=== PATIENT | male | born 1955 | race Caucasian/White ===

== ENCOUNTER 2021-02-11 18:26 | Inpatient (IN) | payer OTHER ==
[~2021-02-11] VITALS: Ht 182.9 cm; Wt 68.5 kg
--- NOTE | ~2021-02-11 | EMS ---
[facility] [address] [place] [address] EMS Patient Care Report Name: BORIS MCCLELLAN JR Room #: 441-P ADM IN M.R.#: [id number] Admission: 02/12/21 Attend Phys: Nahomy Lee MD Discharge: Date of : 55 Report #: [id number] THIS REPORT FOR: //name// Report Transmitted: 02/15/2021 14:54 EMS Care Summary [place], [place]/[facility] Incident [id number] @ 02/11/2021 17:56 Incident Location [address] [place] [address] Patient BORIS MCCLELLAN Male, 65 Years 1955 Patient Address [address] [place] [address] Patient History Congestive Heart Failure (CHF),Chronic Obstructive Pulmonary Disease (COPD),Hypertension (HTN),Stroke/CVA,Hyperlipidemia,Cardiac - Stent,Hyperglycemia, Patient Allergies No known allergies, Patient Medications Albuterol, Nitroglycerin, Acetaminophen, Ativan, Atorvastatin, Famotidine, Chief Complaint constipation Disposition Transported No Lights/[place] Dispatch Reason Abdominal Pain/Problems Transported To [facility] Narrative M42 dispatched for a 61 year old male conscious and breathing having abdominal pain. Patient is located inside the facility laying down in bed. Patient [facility] [address] [place] [address] EMS Patient Care Report Name: BORIS MCCLELLAN JR Room #: 441-P [facility] IN M.R.#: [id number] Admission: 02/12/21 Attend Phys: Nahomy Lee MD Discharge: Date of : 55 Report #: [id number] acknowledges EMS presence is GCS 15, AAOx4. Patient is bedbound and has left sided weakness from Prior stroke. Patient advises of abdominal pain due to not having a bowel movement in the past week. Patient would like to go to [facility] for further evaluation. Patient is moved to the stretcher and secured using seatbelts and rails. Transport is initiated. Assessment conducted is unremarkable. Arrival at the receiving facility patient condition is stable and unchanged. Patient is offloaded and taken to ED room 10. RN is given report and transfer of care is completed. Signatures are obtained and M42 returns to service. Initial Vitals @18:11P: 79,R: 15,BP: 130/87,Pain: 2/10,GCS: 15,CO: 0,SpO2: 95,Revised Trauma: 12, @18:10P: 80,R: 16,BP: 121/84,Pain: 4/10,GCS: 15,SpO2: 98,Revised Trauma: 12, Assessments @18:10MENTAL:No Abnormalities,SKIN:No Abnormalities,HEENT:Head/Face: No Abnormalities,Eyes: No Abnormalities,Neck/Airway: No Abnormalities,LUNG SOUNDS:General: No Abnormalities,ABDOMEN:General: No Abnormalities,PELVIS//GI:No Abnormalities,EXTREMITIES:Left Arm: No Abnormalities,Right Arm: No Abnormalities,Left Leg: No Abnormalities,Right Leg: No Abnormalities,PULSE:NEURO:No Abnormalities, Impression Abdominal Pain Procedures @18:10 ALS Assessment Response: UnchangedSucceeded Timeline 17:42,Call Received 17:42,Dispatch Notified 17:56,Dispatched 17:56,En Route 18:04,On Scene 18:09,At Patient 18:10,ALS Assessment,Response: UnchangedSucceeded, 18:10,BP: 121/84 M,PULSE: 80,RR: 16 R,SPO2: 98 Ox,ETCO2: ,BG: ,PAIN: 4,GCS: 15, 18:11,BP: 130/87 M,PULSE: 79,RR: 15 R,SPO2: 95 Ox,ETCO2: ,BG: ,PAIN: 2,GCS: 15, 18:15,Depart Scene 18:22,At Destination 18:30,Call Closed [facility] [address] [place] [address] EMS Patient Care Report Name: VYBORIS Room #: 441-P ADM IN M.R.#: [id number] Admission: 02/12/21 Attend Phys: Nahomy Lee MD Discharge: Date of : 55 Report #: [id number] Disclaimer v1.1 Copyright 2020 [employer] This EMS Care Summary contains data elements from the applicable legal record (which may be displayed differently). It is designed to provide pertinent information for the following purposes: continuity of care, clinical quality, and state data reporting. The complete legal record is available to ED staff and administrators of the receiving hospital in [facility]'s Patient Tracker. All data is provided "as is."
[2021-02-11 18:27] VITALS: BP 122/75
[2021-02-11 19:46] LABS: ABSOLUTE NEUTROPHILS 3.5 thou/uL (1.4-8.2); BASOPHILS 0.9 % (0.0-2.0); EOSINOPHILS 8.3 % (0.0-3.0); HEMATOCRIT 44.3 % (42.0-52.0); HEMOGLOBIN 14.6 gm/dL (14.0-18.0); LYMPHOCYTES 23.9 % (24.0-44.0); MCH 28.7 pg (26.0-34.0); MCHC 32.9 g/dL (28.0-37.0); MCV 87.3 fL (80.0-100.0); MONOCYTES 10.7 % (1.0-8.0); PLATELET COUNT 200 thou/uL (150-400); POLYS 56.2 % (36.0-66.0); RBC 5.07 mil/uL (4.50-6.00); RDW 15.2 % (10.5-14.5); WBC 6.3 thou/uL (4.0-11.0)
[2021-02-11 19:56] LABS: CALCIUM 9.1 mg/dL (8.5-10.1); CREATININE 0.9 mg/dL (0.7-1.3); POTASSIUM 3.5 mmol/L (3.5-5.1)
[2021-02-11 20:02] LABS: ALBUMIN 2.9 g/dL (3.4-5.0); DIRECT BILIRUBIN 0.4 mg/dL (<0.1-0.2); TOTAL BILIRUBIN 2.1 mg/dL (0.2-1.0); TOTAL PROTEIN 7.2 g/dL (6.4-8.2)
[2021-02-11] MEDS ORDERED: ASA81BEC PO (21:13)
[2021-02-11] MEDS ORDERED: LIPITOR80 MG PO (21:14)
[2021-02-11] MEDS ORDERED: FAMOTIDINE 20 M20 MG PO (21:15)
[2021-02-11] MEDS ORDERED: MILK OF MA2400 MG/11 PO (21:15)
[2021-02-11] MEDS ORDERED: SEROQUEL 100 M100 M1 PO (21:16)
[2021-02-11] MEDS ORDERED: NITROGLYCERIN0.3 M1 PO (21:21)
[2021-02-12 01:56] LABS: HEMATOCRIT 41.6 % (42.0-52.0); MCH 29.2 pg (26.0-34.0); MCHC 33.6 g/dL (28.0-37.0); RBC 4.79 mil/uL (4.50-6.00); RDW 15.4 % (10.5-14.5); WBC 5.5 thou/uL (4.0-11.0)
[2021-02-12 02:10] LABS: CALCIUM 8.7 mg/dL (8.5-10.1); POTASSIUM 3.1 mmol/L (3.5-5.1)
[2021-02-12] MEDS ORDERED: ACETAMINOPHEN325 MG PO (03:33)
[2021-02-12] MEDS ORDERED: NYSTATIN15 G2 TOP (03:34)
[2021-02-12] MEDS ORDERED: ULTRAM 50MG TAB50 MG PO (03:35)
[2021-02-12] MEDS ORDERED: TOPROL XL25 MG PO (03:35)
[2021-02-12] MEDS ORDERED: DULCOLAX10 MG RECTAL (03:36)
[2021-02-12] MEDS ORDERED: PROAIR HFA8.5 GM INH (03:36)
[2021-02-12 07:30] VITALS: BP 124/64
[2021-02-12 07:39] VITALS: BP 141/77
[2021-02-12 18:21] VITALS: BP 147/75
--- NOTE | 2021-02-12 18:45 | NUR ---
Pt arrived to room 441 from Ed via cart
[2021-02-12 19:35] VITALS: BP 161/88
[2021-02-13 05:56] LABS: HEMATOCRIT 41.4 % (42.0-52.0); HEMOGLOBIN 13.7 gm/dL (14.0-18.0); MCH 28.9 pg (26.0-34.0); MCHC 33.1 g/dL (28.0-37.0); MCV 87.5 fL (80.0-100.0); RBC 4.73 mil/uL (4.50-6.00)
--- NOTE | 2021-02-13 05:59 | NUR ---
RECEIVED CARE OF THIS PATIENT AT 1900. PATIENT ALERT AND ORIENTED X4. REMAINS NPO BUT KEEPS ASKING FOR A DRINK. EXPLAINED TO HIM WHY HE COULD NOT HAVE ONE BUT HE SAYS HE KNOWS WHAT HIS BODY NEEDS. THREATENS TO GO AMA IF HE DON'T GET A DRINK. HAS RESIDUAL FROM A PREVIOUS STROKE OF L ARM CONTRACTED AND IMMOBILE. LLE IS VERY WEAK BUT HAS SOME MOVEMENT. C/O PAIN, MED GIVEN. SLEPT LITTLE THIS SHIFT.
[2021-02-13 06:19] LABS: ALBUMIN 2.8 g/dL (3.4-5.0); CALCIUM 8.9 mg/dL (8.5-10.1); CREATININE 0.8 mg/dL (0.7-1.3); TOTAL BILIRUBIN 1.9 mg/dL (0.2-1.0); TOTAL PROTEIN 6.7 g/dL (6.4-8.2)
[2021-02-13 07:38] VITALS: BP 155/89
--- NOTE | 2021-02-13 11:05 | NUR ---
PLEASE REFER TO OT VARIANCE
[2021-02-13 17:10] VITALS: BP 177/93
--- NOTE | 2021-02-13 19:33 | NUR ---
PT DENIES PAIN/DISCOMFORT. CONTINUES WITH NS AT 126/HR. ADVANCED TO FULL LIQUID DIET. PT VERY HAPPY WITH THIS. CONTINUES TO HAVE INCONTINENT LIQUID/LOOSE BM'S
[2021-02-13 20:45] VITALS: BP 156/83
[2021-02-14 06:38] LABS: ALBUMIN 2.8 g/dL (3.4-5.0); CALCIUM 8.5 mg/dL (8.5-10.1); CREATININE 0.8 mg/dL (0.7-1.3); MAGNESIUM 1.4 mg/dL (1.8-2.4); TOTAL BILIRUBIN 1.2 mg/dL (0.2-1.0); TOTAL PROTEIN 6.8 g/dL (6.4-8.2)
[2021-02-14 06:43] LABS: POTASSIUM 2.6 mmol/L (3.5-5.1)
--- NOTE | 2021-02-14 06:46 | NUR ---
critical lab value potassium of 2.6 called to FISHING INSTRUCTOR nela, follow prn order for K+ replacement per nela FISHING INSTRUCTOR. shift change happening, will have day nurse give K+ as orders follow
[2021-02-14 07:00] VITALS: BP 157/76
[2021-02-14 16:35] VITALS: BP 155/70
--- NOTE | 2021-02-14 18:22 | NUR ---
PATIENT RESTED IN BED THROUGHOUT SHIFT. PATIENT ABLE TO TURN SELF WITHOUT DIFFICULTY. PATIENT USED URINAL MULTIPLE TIMES WITHOUT ISSUES, NO BM TODAY. REMAINED PLEASNT AND CALM WITHOUT ISSUES.
[2021-02-14 19:58] VITALS: BP 151/83
[2021-02-15 04:47] VITALS: BP 142/86
[2021-02-15 06:45] LABS: ABSOLUTE NEUTROPHILS 2.2 thou/uL (1.4-8.2); BASOPHILS 0.3 % (0.0-2.0); HEMATOCRIT 43.2 % (42.0-52.0); HEMOGLOBIN 14.2 gm/dL (14.0-18.0); LYMPHOCYTES 22.2 % (24.0-44.0); MCH 28.6 pg (26.0-34.0); MCV 86.8 fL (80.0-100.0); MONOCYTES 11.6 % (1.0-8.0); PLATELET COUNT 196 thou/uL (150-400); POLYS 55.9 % (36.0-66.0); RBC 4.97 mil/uL (4.50-6.00); RDW 15.2 % (10.5-14.5); WBC 3.9 thou/uL (4.0-11.0)
[2021-02-15 07:04] LABS: CALCIUM 8.7 mg/dL (8.5-10.1); CREATININE 0.8 mg/dL (0.7-1.3); MAGNESIUM 1.9 mg/dL (1.8-2.4)
[2021-02-15 07:07] LABS: POTASSIUM 2.7 mmol/L (3.5-5.1)
--- NOTE | 2021-02-15 09:45 | NUR ---
ORDERS FOR EVAL AND TREAT. SPOKE WITH Pt WHO STATES THEY USE A LIN LIFT TO GET HIM TO HIS WHEELCHAIR AND HE NEVER SITS EDGE OF BED BECAUSE HE JUST TIPS OVER. THINKS HE IS DISCHARGING BACK TO FACILITY POSSIBLY TODAY. Pt IS DEPENDENT IN HIS MOBILITY AND HAS NO FUNCTIONAL GOALS. Pt IS NOT A CANDIDATE FOR THERAPY IN THE ACUTE SETTING
--- NOTE | 2021-02-15 12:47 | NUR ---
Assess due to high nutrition screening risk for wt loss >34 lb and poor intake. Pt admitted from SNF with abdominal pain, no bowel movement >12 days, and partial SBO which is resolving. Diet newly advanced. K being replaced. Attempted visit with lunch tray being delivered but pt would not awaken to eat. Does have hx CVA. Will followup in few days to determine accuracy of wt loss hx/reasoning and ability to tolerate oral intake.
--- NOTE | 2021-02-15 14:48 | NUR ---
Cm spoke with arnav ADHIKARI at [facility], janneth been that for almost a month for skilled rehab. HX of CVA, unable to move his left upper and lower ext. Noted while visiting with him, his left hand is contracted. Uses wheelchair. [facility] is unable to accept back today related to no open skilled bedside today, they should have an open bed tomorrow. He is a & o x 3 with, pleasant and able to make his needs known.
[2021-02-15 16:00] VITALS: BP 151/90
[2021-02-15 21:35] VITALS: BP 145/89
--- NOTE | 2021-02-16 04:53 | NUR ---
RECEIVED CARE OF THIS PATIENT AT 1900. PATIENT ALERT AND ORIENTED X4. PATIENT IS INC OF B/B BUT DOES AT TIMES USE THE URINAL. REMAINS ON BEDREST D/T PREVIOUS STROKE. L UPPER ARM IS FLACCID AND CONTRACTED. L LOWER EXT VERY WEAK. IV IN LH PATENT WITH FLUIDS INFUSING. HAS G-TUBE IN R UPPER QUAD, NOT BEING USED AT THIS TIME. DENIES PAIN. SLEPT OFF AND ON DURING NIGHT.
[2021-02-16 06:23] LABS: HEMATOCRIT 41.5 % (42.0-52.0); HEMOGLOBIN 13.7 gm/dL (14.0-18.0); MCH 28.5 pg (26.0-34.0); MCV 86.4 fL (80.0-100.0); RBC 4.8 mil/uL (4.50-6.00); RDW 15.2 % (10.5-14.5); WBC 4.1 thou/uL (4.0-11.0)
[2021-02-16 06:29] LABS: CALCIUM 8.3 mg/dL (8.5-10.1); CREATININE 0.6 mg/dL (0.7-1.3)
[2021-02-16 06:44] LABS: POTASSIUM 2.6 mmol/L (3.5-5.1)
[2021-02-16 07:07] VITALS: BP 152/85
--- NOTE | 2021-02-16 08:10 | NUR ---
A/O X 4. ROOM AIR. NO PAIN NOTED AT THIS TIME. FROM [facility]. BESTREST DUE TO LEFT SIDE FLACCID FROM PAST CVA. INCONT B/B. LEFT LOWER QUAD GTUBE THATS CLAMPED. LIQUID INCONT STOOL THIS MORNING. STAGE 1 PRESSURE ULCER BUTTOCKS. POTASSIUM 2.6 AND WILL BE GIVEN ONE TIME DOSE OF 40 FELICIA OF POTASSIUM. HEPARIN DVT PPX. RIGHT HAND IV WITH D5 INFUSING @ 80 MLS/HR. TAKES MEDS PO. WANTS TO SPEAK WITH CM TODAY REGADING D/C TO DIFFERENT SNF. DRY SKIN.
--- NOTE | 2021-02-16 10:55 | NUR ---
Discussed during los, still needing to replace his potassium so no dc today. Possible able to dc to skilled at [facility] tomorrow.
[2021-02-16 15:05] VITALS: BP 105/57
[2021-02-16 22:30] VITALS: BP 99/65
[2021-02-17 04:21] VITALS: BP 132/64
--- NOTE | 2021-02-17 06:11 | NUR ---
RECEIVED CARE OF THIS PATIENT AT 1900. PATIENT ALERT AND ORIENTED X4. IS INC OF B&B. CLEANED UP SEVERAL TIMES. IV PATENT WITH FLUIDS INFUSING. L ARM FLACCID AND CONTRACTED, L LEG VERY WEAK. DENIES PAIN. SLEPT MOST OF NIGHT.
[2021-02-17 07:56] VITALS: BP 130/77
[2021-02-17 09:21] VITALS: BP 130/77
--- NOTE | 2021-02-17 09:52 | NUR ---
PATIENT A/O X 4. DEPRESSED AND STATES HES DONE WITH EVERYTHING. REFUSING LAB DRAWS TO RECHECK HIS POTASSIUM, REFUSING CARE FROM TECH. REFUSED ACCU CHECK. ROOM AIR. REDREST, RIGHT HAND IV WITH D5 INFUSING @ 80 MLS/HR, INCONT OF B/B. LEFT LOWER QUAD GTUBE CLAMPED. FLACCID ON LEFT SIDE OF BODY FROM PAST CVA. NO PAIN NOTED AT THIS TIME. HES READY TO D/C TO [facility] TODAY.
[2021-02-17 13:05] LABS: CALCIUM 8.6 mg/dL (8.5-10.1); CREATININE 0.7 mg/dL (0.7-1.3); POTASSIUM 3.1 mmol/L (3.5-5.1)
--- NOTE | 2021-02-17 14:26 | NUR ---
Pt dcing back to snf at [facility] this afternoon. Dc confirmed with the ZEYNEP Hauser and orders faxed to her. [facility] van arranged for 3-4pm transport per [facility] and vouch per cm to facilitate dc. Message left for the pt's legal guardian, Juli Mcclure, [facility] Public Admin office [phone] to confirm dc back to the snf and to get their fax number. Chart copy is ready to be sent with the pt and nursing to call report.
== END 2021-02-17 15:44 | DRG 389 ==
LOC: ER 18:26 → EROBS 22:11 → 4S 02-12 11:24
PROVIDERS: Hospitalist; Internal Medicine; Nurse Practitioner; Nurse Practitioner Family; Student in an Organized Health Care Education/Training Program; ADMIT Hospitalist; ATTEND Hospitalist
DX: K56.600 Partial intestinal obstruction, unspecified as to cause (principal); I69.354 Hemiplegia and hemiparesis following cerebral infarction affecting left non-dominant side; E87.0 Hyperosmolality and hypernatremia; E44.0 Moderate protein-calorie malnutrition; Z93.1 Gastrostomy status; K59.00 Constipation, unspecified; E87.6 Hypokalemia; J44.9 Chronic obstructive pulmonary disease, unspecified; Z20.822 Contact with and (suspected) exposure to COVID-19; I11.0 Hypertensive heart disease with heart failure; I50.9 Heart failure, unspecified; E78.5 Hyperlipidemia, unspecified; F41.9 Anxiety disorder, unspecified; G89.29 Other chronic pain; K21.9 Gastro-esophageal reflux disease without esophagitis; Z66 Do not resuscitate; F17.210 Nicotine dependence, cigarettes, uncomplicated; N20.0 Calculus of kidney; E83.42 Hypomagnesemia; Z79.82 Long term (current) use of aspirin; Z79.899 Other long term (current) drug therapy; Z88.8 Allergy status to other drugs, medicaments and biological substances; Z23 Encounter for immunization
CPT/HCPCS: 10195

== ENCOUNTER 2021-04-02 03:47 | Inpatient (IN) | payer OTHER ==
[~2021-04-02] VITALS: Ht 193 cm; Wt 96.8 kg
--- NOTE | ~2021-04-02 | EMS ---
[facility] [address] [place] [address] EMS Patient Care Report Name: BORIS MCCLELLAN JR Room #: 450-P ADM IN M.R.#: [id number] Admission: 04/02/21 Attend Phys: Aba Locke MD Discharge: Date of : 55 Report #: [id number] THIS REPORT FOR: //name// Report Transmitted: 04/05/2021 13:10 EMS Care Summary [place], [place]/[facility] Incident [id number] @ 04/02/2021 03:10 Incident Location [address] [place] [address] Patient BORIS MCCLELLAN Male, 65 Years 1955 Patient Address [address] [place] [id number] Patient History Congestive Heart Failure (CHF),Chronic Obstructive Pulmonary Disease (COPD),Hypertension (HTN),Stroke/CVA,Hyperlipidemia,Cardiac - Stent,Hyperglycemia, Patient Allergies No known allergies, Patient Medications Acetaminophen, Nitroglycerin, Atorvastatin, Famotidine, Albuterol, Ativan, Chief Complaint bowel obstruction Disposition Transported No Lights/[place] Dispatch Reason Abdominal Pain/Problems Transported To [facility] Narrative Initially dispatched for abdominal pain. Upon EMS arrival patient was found [facility] [address] [place] [address] EMS Patient Care Report Name: BORIS MCCLELLAN JR Room #: 450-P ADM IN M.R.#: [id number] Admission: 04/02/21 Attend Phys: Aba Locke MD Discharge: Date of : 55 Report #: [id number] laying supine in his bed, slightly anxious, CAOx4. Nurse on scene reported that the patient has a small bowel obstruction based off of a KUB test that they had run on him. Patient stated that he had not had a bowel movement in about a month. He complained of RUQ abdominal pain and rectal pain. Patient stated that he did not want EMS crew to attempt IV access. He was transported to [facility] without incident. Full report was given to RN prior to signing this document. Initial Vitals @03:33P: 96,R: 18,BP: 144/80,Pain: 9/10,GCS: 15,SpO2: 94,Revised Trauma: 12, @03:43P: 96,R: 18,BP: 118/82,GCS: 15,SpO2: 93,Revised Trauma: 12, Assessments @03:25MENTAL:No Abnormalities,SKIN:No Abnormalities,HEENT:Head/Face: No Abnormalities,Eyes: No Abnormalities,Neck/Airway: No Abnormalities,LUNG SOUNDS:Right Upper: JUDITH,General: No Abnormalities,Left Upper: No Abnormalities,Left Lower: No Abnormalities,Right Lower: No Abnormalities,ABDOMEN:Right Upper: JUDITH,General: No Abnormalities,Left Upper: No Abnormalities,Left Lower: No Abnormalities,Right Lower: No Abnormalities,PELVIS//GI:EXTREMITIES:Left Arm: No Abnormalities,Right Arm: No Abnormalities,Left Leg: No Abnormalities,Right Leg: No Abnormalities,PULSE:NEURO:No Abnormalities, Impression Abdominal Pain Procedures @03:25 ALS Assessment Response: UnchangedSucceeded Timeline 03:07,Call Received 03:07,Dispatch Notified 03:10,Dispatched 03:13,En Route 03:22,On Scene 03:25,At Patient 03:25,ALS Assessment,Response: UnchangedSucceeded, 03:33,BP: 144/80 M,PULSE: 96,RR: 18 R,SPO2: 94 Ox,ETCO2: ,BG: ,PAIN: 9,GCS: 15, 03:34,Depart Scene 03:43,BP: 118/82 M,PULSE: 96,RR: 18 R,SPO2: 93 Ox,ETCO2: ,BG: ,PAIN: ,GCS: 15, 03:43,At Destination 03:50,Call Closed Disclaimer v1.1 Copyright 2021 [place] [address] EMS Patient Care Report Name: BORIS MCCLELLAN Room #: 450-P ADM IN M.R.#: [id number] Admission: 04/02/21 Attend Phys: Aba Locke MD Discharge: Date of : 55 Report #: [id number] This EMS Care Summary contains data elements from the applicable legal record (which may be displayed differently). It is designed to provide pertinent information for the following purposes: continuity of care, clinical quality, and state data reporting. The complete legal record is available to ED staff and administrators of the receiving hospital in [facility] Patient Tracker. All data is provided "as is."
[~2021-04-02 03:47] MED LIST: ACETAMINOPHEN325 MG PO; ASA81BEC PO; DULCOLAX10 MG RECTAL; FAMOTIDINE 20 M20 MG PO; LIPITOR80 MG PO; MILK OF MA2400 MG/11 PO; NITROGLYCERIN0.3 M1 PO; NYSTATIN15 G2 TOP; PROAIR HFA8.5 GM INH; SEROQUEL 100 M100 M1 PO; TOPROL XL25 MG PO; ULTRAM 50MG TAB50 MG PO
[2021-04-02 03:51] VITALS: BP 136/82
[2021-04-02 05:16] LABS: ABSOLUTE NEUTROPHILS 7.1 thou/uL (1.4-8.2); BASOPHILS 0.8 % (0.0-2.0); EOSINOPHILS 3.9 % (0.0-3.0); HEMATOCRIT 40.3 % (42.0-52.0); HEMOGLOBIN 13.5 gm/dL (14.0-18.0); LYMPHOCYTES 9.1 % (24.0-44.0); MCH 29.3 pg (26.0-34.0); MCHC 33.6 g/dL (28.0-37.0); MCV 87.2 fL (80.0-100.0); MONOCYTES 9.3 % (1.0-8.0); PLATELET COUNT 274 thou/uL (150-400); POLYS 76.9 % (36.0-66.0); RBC 4.62 mil/uL (4.50-6.00); RDW 16.6 % (10.5-14.5); WBC 9.2 thou/uL (4.0-11.0)
[2021-04-02 05:26] LABS: CREATININE 0.9 mg/dL (0.7-1.3); POTASSIUM 3.6 mmol/L (3.5-5.1)
[2021-04-02 05:32] LABS: ALBUMIN 2.7 g/dL (3.4-5.0); TOTAL BILIRUBIN 3.3 mg/dL (0.2-1.0); TOTAL PROTEIN 8.3 g/dL (6.4-8.2)
[2021-04-02] MEDS ORDERED: MIRALAX119 GM PO (05:36)
--- NOTE | 2021-04-02 09:34 | EKG ---
[place] [address] [facility] [place] [address] ELECTROCARDIOGRAM REPORT Name: BORIS MCCLELLAN JR Room #: 170-9 ADM IN M.R.#: [id number] Admission: 04/02/21 Attend Phys: Aba Locke MD Discharge: Date of : 55 Report #: [id number] [facility] ED Test Date: 2021-04-02 Test Time: 09:05:46 Pat Name: BORIS MCCLELLAN Department: Room: 170 Gender: M Rib Matcher And Fitter: HANNAH : 1955 Requested By: Elida Villar Order Number: [id number] MD: Rajiv Ayala Measurements Intervals [place] Rate: 90 P: 46 TX: 195 QRS: -27 QRSD: 115 T: 6 QT: 361 QTc: 442 Interpretive Statements Sinus rhythm Nonspecific intraventricular conduction delay Inferior infarct, old Poor R wave progression No previous ECG available for comparison Electronically Signed On 04-02-2021 9:33:54 CANDY WRAPPING MACHINE OPERATOR by Rajiv Ayala [email or web address] <ELECTRONICALLY SIGNED> By: Rajiv Ayala MD, [facility] 04/02/2133 4 4 Rajiv Ayala MD, FACC /EPI
[2021-04-02 10:00] VITALS: BP 109/63
[2021-04-02 13:26] VITALS: BP 133/81
[2021-04-02 13:32] VITALS: BP 121/77
--- NOTE | 2021-04-02 15:48 | NUR ---
ED ADMIT FOR SMALL BOWL OBSTRUCTION. FROM [facility]. A/O X4. 2L O2 VIA NASAL CANNULA, BEDBOUND, LEFT SIDE WEAKNESS, GTUBE MID ABD, RIGHT FOREARM IV WITH D5 1/2 NS INFUSING @ 100 MLS/HR, TELE JAYRO IN THE 50'S. HAD SMALL BM UPON ARRIVAL, IS A GUARDIAN OF THE STATE, GUARDIAN FRANTZ CROSS, NPO. NO PAIN NOTED AT THIS TIME.
--- NOTE | 2021-04-02 16:26 | NUR ---
CM INTRODUCED SELF TO PT. PT WAS OBSERVED IN A RECLINED SUPINE POSITION IN BED. PT HAD PERSISTENT HICCUPS THAT THE PT REPORTS BEING PAINFUL. PT A+O. PT IN NPO AT THIS TIME. PT IS ON 2L02. PT REPORTS UTILIZING A WHEELCHAIR AND WHEN CM ASKED ABOUT THEIR ABILITY TO TAKE CARE OF ADLS, THE PT RESPONDED WITH, "THEY DON'T LET ME DO STUFF ON MY OWN." CM ASKED SEVERAL TIMES IF THE PT HAS ANY STEPS TO ENTER HIS LIVING OR ANY STEPS INSIDE BUT WAS UNSUCESSFUL IN GETTING AN ANSWER. PT RESIDES AT [facility]. 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 CM AND NURSING ATTEMPTED TO CALL GUARDIAN, JANNETH CROSS, 3 TIMES, NO OPTION FOR VOICEMAIL - INDICATED THEY ARE CLOSED FOR THE HOLIDAY - NO OTHER NUMBER GIVEN TO CALL. PT INDICATED HE WANTS TO "MAKE SURE FRANTZ KNOWS WE TRIED TO CONTACT HER." CM INFORMED PT THAT WE WILL MAKE SURE TO NOTE OUR CONTACT ATTEMPTS AND CONNECT WITH HER AT HER SOONEST AVAILABILITY. PT DID NOT REPORT ANY QUESTIONS OR CONCERNS PAST THAT AT THIS TIME. PT WAS AGREEABLE AND POLITE TO CM. CM INFORMED PT THEY WILL FOLLOW WITH HIS CARE TEAM AND CONNECT BACK WITH HIM.
[2021-04-02 19:41] VITALS: BP 130/85
--- NOTE | 2021-04-03 05:06 | NUR ---
patient aox4 makes needs known. patient denied pain or discomfort this shift.patient has been npo this shift. patient incontint this shift pericare and barrier cream applied as needed.fall precaution in place. patient in bed asleep at this time breathing regular and unlaboured.
[2021-04-03 05:31] LABS: HEMATOCRIT 38.3 % (42.0-52.0); MCH 29.4 pg (26.0-34.0); MCHC 33.8 g/dL (28.0-37.0); RBC 4.4 mil/uL (4.50-6.00); WBC 6.9 thou/uL (4.0-11.0)
[2021-04-03 05:57] LABS: ALBUMIN 2.4 g/dL (3.4-5.0); CALCIUM 9.2 mg/dL (8.5-10.1); CREATININE 0.7 mg/dL (0.7-1.3); POTASSIUM 3.6 mmol/L (3.5-5.1); TOTAL PROTEIN 7.6 g/dL (6.4-8.2)
[2021-04-03 07:52] VITALS: BP 128/81
--- NOTE | 2021-04-03 10:33 | NUR ---
ASSUMED PT CARE THIS AM. PT IS ALERT & ORIENTED X3. PT HAS IV SITE ON RFA RUNNING D5 1/2 NS @100ML AND INFUSED ANTIBIOTIC THIS AM. PT HAS TELE MONITOR ON AND IS ON 2L NC 02. PT HAS PEG TUBE MID ABDOMEN. LAST BM WAS YESTERDAY. IVANA VOSS SCHEDULED THIS AM WAS CANCELLED DUE TO UNABLE TO GET HOLD OF LEGAL GUARDIAN. PT ON THE BED WATCHING TV, BED ON THE LOWEST POSITION, SIDE RAILS UP, CALL LIGHT WITHIN REACH. WILL FOLLOW POC.
[2021-04-03 16:04] VITALS: BP 111/74
[2021-04-03 19:49] VITALS: BP 125/86
--- NOTE | 2021-04-04 03:03 | NUR ---
PT IS A/O X3 WITH FORGETFULNESS AND IS ON BEDREST. IS ON 2 LITERS O2 PER NC. PT CAN BE IMPULSIVE WITH TAKING IT OFF. SR/ST ON THE MONITOR. VSS. AFEBRILE. INCONTINENT. NO BM THIS SHIFT. MEDICATIONS GIVEN PER APR. C/O LEFT HAND PAIN. WARM BLANKET AND PRN PAIN MEDICATION GIVEN DIRECTED. FALL PRECAUTIONS IN PLACE, CALL LIGHT IS WITHIN REACH.
[2021-04-04 04:45] VITALS: BP 138/95
[2021-04-04 06:11] LABS: HEMATOCRIT 37.3 % (42.0-52.0); HEMOGLOBIN 12.4 gm/dL (14.0-18.0); MCH 29.2 pg (26.0-34.0); MCHC 33.3 g/dL (28.0-37.0); MCV 87.8 fL (80.0-100.0); RBC 4.24 mil/uL (4.50-6.00); RDW 15.5 % (10.5-14.5); WBC 7.7 thou/uL (4.0-11.0)
[2021-04-04 06:21] LABS: CALCIUM 8.9 mg/dL (8.5-10.1); CREATININE 1.5 mg/dL (0.7-1.3); POTASSIUM 3.4 mmol/L (3.5-5.1)
[2021-04-04 07:25] VITALS: BP 140/85
--- NOTE | 2021-04-04 13:48 | NUR ---
CHANI QUAN AND LILIAM QUAN, SPOKE WITH FRANTZ CROSS [phone] APPOINTED GUARDING REGARDING INFORMED CONSENT FOR SURGERY. SHE GAVE CONSENT TO BOTH LILIAM AND Rubens VIA TELEPHONE AT THIS TIME.
[2021-04-04 16:48] VITALS: BP 153/88
[2021-04-04 19:43] VITALS: BP 136/85
--- NOTE | 2021-04-05 01:11 | NUR ---
PT STATES HE IS JUST FEELING WORSE AND WORSE EVERYDAY THAT HE DOESN'T RECEIVE THE SURGERY. HE STATED HIS PAIN IS UNBEARABLE AND HE DOESN'T WANT TO BE TURNED OR EVEN MOVED AROUND WHILE IN THE BED. HE IS HOPEFUL THAT SX WILL TAKE PLACE TOMORROW. REMAINS ON 2 LITERS O2 PER NC. VSS. PRN PAIN MEDICATION GIVEN FOR ABDOMINAL PAIN. IV FLUIDS INFUSING AT PRESCRIBED RATE. FALL PRECAUTIONS IN PLACE, CALL LIGHT IS WITHIN REACH.
[2021-04-05 04:53] VITALS: BP 151/91
[2021-04-05 07:30] VITALS: BP 147/89
[2021-04-05 07:57] LABS: ALBUMIN 1.9 g/dL (3.4-5.0); CALCIUM 8.8 mg/dL (8.5-10.1); CREATININE 2.8 mg/dL (0.7-1.3); POTASSIUM 3.1 mmol/L (3.5-5.1); TOTAL BILIRUBIN 1.1 mg/dL (0.2-1.0); TOTAL PROTEIN 6.2 g/dL (6.4-8.2)
[2021-04-05 11:09] VITALS: BP 139/86
--- NOTE | 2021-04-05 12:18 | 2DMMODE ---
[facility] [place] [address] 2 D/M-MODE ECHOCARDIOGRAM Name: BORIS MCCLELLAN Room #: 450-P ADM IN M.R.#: [id number] Admission: 04/02/21 Attend Phys: Aba Locke MD Discharge: Date of : 55 Report #: [id number] THIS REPORT FOR: cc: Nathan Camacho,Rajiv Baldwin MD [facility] ~ APPROVED REPORT Study performed: 04/05/2021 10:35:57 EXAM: Comprehensive 2D, Doppler, and color-flow Echocardiogram Patient Location: Bedside Room #: 450 Status: routine BSA: 2.25 HR: 99 bpm BP: 147/89 mmHg Rhythm: tachy, frequent PVCs Other Information Study Quality: Adequate Indications Bradycardia, Pre-Op. Hx: [place], PCI, COPD, CVA. 2D Dimensions IVSd: 13.46 (7-11mm) LVOT Diam: 23.78 (18-24mm) LVDd: 52.61 mm PWd: 11.90 (7-11mm) LVDs: 45.63 (25-40mm) Left Atrium: 42.28 (27-40mm) Volumes Left Atrial Volume (Systole) Single Plane 4CH: 43.14 mL Single Plane 2CH: 44.62 mL LA ESV Index: 20.00 mL/m2 Aortic Valve AoV Peak Manjeet.: 1.26 m/s AO Peak Gr.: 6.36 mmHg LVOT Max P.41 mmHg LVOT Max V: 0.78 m/s DOMINIQUE Vmax: 2.74 cm2 [facility] [address] [place] [address] 2 D/M-MODE ECHOCARDIOGRAM Name: BORIS MCCLELLAN Room #: 450-P ADM IN .R.#: [id number] Admission: 04/02/21 Attend Phys: Aba Locke MD Discharge: Date of : 55 Report #: [id number] Pulmonary Valve PV Peak Manjeet.: 1.20 m/s PV Peak Gr.: 5.73 mmHg Tricuspid Valve TR Peak Manjeet.: 2.60 m/s TR Peak Gr.: 27.00 mmHg Left Ventricle The left ventricle is normal size. Mild concentric left ventricular hypertrophy. Left ventricular systolic function is mild to moderately decreased. LVEF 45%. Hypokinesis base of inferior wall This study is not technically sufficient to allow evaluation of the LV diastolic function. Right Ventricle The right ventricle is normal size. The right ventricular systolic function is normal. Atria The left atrium size is normal. The right atrium size is normal. Aortic Valve Aortic valve is trileaflet; mildly calcified. No aortic regurgitation is present. There is no aortic valvular stenosis. Mitral Valve The mitral valve is normal in structure. Mild mitral regurgitation. Tricuspid Valve The tricuspid valve is normal in structure. Trace tricuspid regurgitation. Estimated pulmonary artery pressure of 35mmHg Pulmonic Valve The pulmonary valve is normal in structure. Great Vessels The aortic root is normal in size. The ascending aorta is normal in size. The inferior vena cava is not well visualized. Pericardium There is no pericardial effusion. <Conclusion> [facility] [address] [place] [address] 2 D/M-MODE ECHOCARDIOGRAM Name: BORIS MCCLELLAN Room #: 450-P ADM IN .R.#: [id number] Admission: 04/02/21 Attend Phys: Aba Locke MD Discharge: Date of : 55 Report #: [id number] Left ventricular systolic function is mild to moderately decreased. LVEF 45%. Hypokinesis base of inferior wall Aortic valve is trileaflet; mildly calcified. No aortic regurgitation or stenosis. The mitral valve is normal in structure. Mild mitral regurgitation. Trace tricuspid regurgitation. Estimated pulmonary artery pressure of 35mmHg There is no pericardial effusion. <ELECTRONICALLY SIGNED> By: Rajiv Ayala MD, FACC 04/05/211216 16 16 Rajiv Ayala MD, FACC /INF
--- NOTE | 2021-04-05 14:10 | NUR ---
Care team had gotten hold of LILIANA espinoza at . Surgery team now have consent from public security system administrator. Plan for laparoscopic cholecystectomy with cholangiogram today. Cm to fax updates to [facility].
[2021-04-05 15:03] VITALS: BP 145/82
[2021-04-05 19:54] VITALS: BP 140/82
--- NOTE | 2021-04-06 04:16 | NUR ---
PT HAS HAD TOTAL BED BATH WITH LINEN CHANGE TO PREPARE FOR PROCEDURE. PRN PAIN MEDICATION GIVEN FOR C/O PAIN. VSS. AFEBRILE. FALL PRECAUTIONS IN PLACE, CALL LIGHT IS WITHIN REACH. PT HAS BEEN NPO SINCE MIDNIGHT. PT CALLS OUT APPROPRIATELY FOR ASSISTANCE.
[2021-04-06 06:29] VITALS: BP 169/84
[2021-04-06 10:40] VITALS: BP 130/79
--- NOTE | 2021-04-06 11:24 | NUR ---
Assumed care of pt at 0700. Pt underwent surgery for gall bladder removal. Pt back to the room now. Vital signs stable. Incisions clean and well-approximated. PEG tube in place. Incontinent. Call light within reach. Will continue to monitor.
[2021-04-06 12:25] VITALS: BP 121/78
--- NOTE | 2021-04-06 15:39 | NUR ---
PT LAP CHOLOE WITH COLANGIOGRAM THIS DAY NOT YESTERDAY. CM TO SEND CLINICAL UPDATE TO [facility]. IT IS ANTICPATED THAT PT WILL RETURN THERE ONCE MEDICALLY STABLE. CM FOLLOWING.
[2021-04-06 16:01] VITALS: BP 159/84
[2021-04-06 20:03] VITALS: BP 136/85
--- NOTE | 2021-04-07 05:10 | NUR ---
PATIENT AOX4 MAKES NEEDS KNOWN. PAIN CONTROLLED THIS SHIFT. PATIENT HAS FOUR LAP SITE C/D/I.PATIENT INCONTIENT PERICARE AND BARRIER CREAM APPLIED NEEDED. PATIENT TOLERATED FLUIDS AND SNACKS THIS SHIFT. FALL PRECAUTION IN PLACE. PATIENT IN BED ASLEEP AT THIS TIME BREATHING REGULAR AND UNLABOURED.
[2021-04-07 06:24] LABS: CALCIUM 8.9 mg/dL (8.5-10.1); CREATININE 3.7 mg/dL (0.7-1.3); POTASSIUM 3.8 mmol/L (3.5-5.1)
[2021-04-07 07:14] VITALS: BP 137/86
--- NOTE | 2021-04-07 09:07 | NUR ---
A/O X 4, LEFT SIDE WEAKNESS FROM PAST CVA, LEFT ARM CONTRACTED, BEDBOUND, ABD LAP SITES DERMABOND, GTUBE LEFT UPPER QUAD CLAMPPED, RIGTH AC PIV WITH D5 1/2 NS INFUSINF @ 100 MLS/HR, NORCO GIVEN FOR ABD PAIN 06/29, FROM [facility] AND IS [facility]
--- NOTE | 2021-04-07 14:56 | NUR ---
PT AND OT ORDERED. CARE TEAM INDICATED THAT PT HAD BEEN REFUSING MARINO PLACEMENT EARLIER TODAY. CM TO FAX UPDATED TO [facility]. CM FOLLOWING REGARDING DC PLANNING.
[2021-04-07 18:50] VITALS: BP 150/105
--- NOTE | 2021-04-08 03:10 | NUR ---
PT C/O ABDOMINAL PAIN. PRN PAIN MEDICATION GIVEN DIRECTED. LAPSITES ARE C/D/I. WARM BLANKET GIVEN REQUESTED BY PT. REFUSED TO EAT DINNER THIS NOC. ATE 3 BITES OF DESSERT FRUIT CUP. FALL PRECAUTIONS IN PLACE, CALL LIGHT IS WITHIN REACH. PT CALLS OUT AT TIMES OR YELLS OUT FOR ASSISTANCE. REFUSES TO BE REPOSITIONED OR MARINO TO BE PLACED TO COLLECT UA. WILL CONTINUE TO MONITOR.
[2021-04-08 06:53] VITALS: BP 154/94
--- NOTE | 2021-04-08 09:03 | NUR ---
A/O X 3-4 MOMENTS OF FORGETFULNESS ROOM AIR, BEDBOUND, INCONT B/B, RIGHT AC PIV INFUSING D5 1/2 NS @100 MLS/HR, [address], POTASSIUM REPLACEMENT PROTOCAL BUT REFUSING LAB DRAWS, STILL REFUSEING MARINO PLACEMENT, ABD PAIN 08/29 FROM [facility], NURSE EXPLAINED IMPORTANCE OF MARINO PLACEMENT THAT IT WILL HELP REDUCE ABD PAIN, PATIENT STILL REFUSED MARINO, NORCO GIVEN PRN FOR ABD PAIN, HAS A GUARDIAN FRANTZ CROSS, FROM [facility]
[2021-04-08 15:27] VITALS: BP 168/102
--- NOTE | 2021-04-08 17:07 | PATH ---
[facility] [address] [place] [address] PATHOLOGY RPT PROCEDURE Name: BORIS MCCLELLAN Room #: 450-P ADM IN M.R.#: [id number] Admission: 04/02/21 Date of : 55 Discharge: Report #: [id number] Path Case #: [id number] [facility] Accession Number: [id number] . 01 Material submitted: . gallbladder - GALLBLADDER . 01 Clinical history: . LAPAROSCOPIC CHOLECYSTECTOMY W/GRAM ACUTE CHOLECYSTITIS D/T BILIARY CALCULUS . 01 Diagnosis: Gallbladder "gallbladder, cholecystectomy": - Acute and subacute cholecystitis with extensive mucosal necrosis with acute inflammation extending into the submucosa, muscularis and serosa. - Cholelithiasis. ([facility]:isis; 04/07/2021) S 04/07/2021 [facility] Local . 01 Electronically signed: . Ben Burch MD, Pathologist NPI- [id number] . 01 Gross description: . Fixative: Formalin Labeled: Gallbladder Specimen received: Previously opened gallbladder Dimensions: 10.2 x 4.3 x 2.7 cm Serosa: Red-cobos, smooth and roughened Lymph node: Not identified Mucosa: Red-brown, roughened Average wall thickness: Up to 0.9 cm Calculi: A single dark brown, friable calculi measuring 0.7 cm Abnormalities: None identified . A1- Assembler Ping Pong Table body, fundus, and the cystic duct margin. ([facility]; 04/06/2021) NRI/NRI 04/06/2021 1538 Local . 01 Pathologist provided ICD-10: K80.00 . 01 CPT . 313968 Specimen Comment: A courtesy copy of this report has been sent to [phone] Specimen Comment: [id number] [address] PATHOLOGY RPT PROCEDURE Name: VYBORIS Room #: 450-P [facility] IN M.R.#: [id number] Admission: 04/02/21 Date of : 55 Discharge: Report #: [id number] Path Case #: [id number] Specimen Comment: Report sent to / DR NELSON / DR GUTIERREZ Specimen Comment: A duplicate report has been generated due to demographic updates. Performed at: 01 [facility] Blade Sampson [address] [place] [address] [address], [place], [place] [id number] MD Ben Burch MD Phone: [phone]
[2021-04-08 18:56] VITALS: BP 172/66
--- NOTE | 2021-04-08 21:19 | NUR ---
PT RESTING IN BED. ABD SITES REDENNED DRY INTACT. ABD DISTENED. PT HAD EMESIS X1, PRN PROVIDED. IVF INTACT. MARINO TO DD. PEG TUBE INTACT. BED ALARM ON.
--- NOTE | 2021-04-09 03:11 | NUR ---
PT HAD TWO EPISODES OF EMESIS, YELLOW BILE. PRN FOR NAUSEA PROVIDED.
[2021-04-09 05:20] LABS: HEMATOCRIT 34.1 % (42.0-52.0); HEMOGLOBIN 11.7 gm/dL (14.0-18.0); MCH 29.7 pg (26.0-34.0); MCHC 34.2 g/dL (28.0-37.0); MCV 86.7 fL (80.0-100.0); RBC 3.94 mil/uL (4.50-6.00); RDW 15.6 % (10.5-14.5); WBC 9.5 thou/uL (4.0-11.0)
[2021-04-09 05:52] VITALS: BP 139/97
[2021-04-09 05:56] LABS: ALBUMIN 2.1 g/dL (3.4-5.0); CALCIUM 8.6 mg/dL (8.5-10.1); CREATININE 3.5 mg/dL (0.7-1.3); PHOSPHORUS 4.4 mg/dL (2.5-4.9); POTASSIUM 3.1 mmol/L (3.5-5.1)
[2021-04-09 07:03] VITALS: BP 170/94
--- NOTE | 2021-04-09 11:12 | NUR ---
ASSUMED PT CARE THIS AM. PT HAS MARINO CATH IN PLACE AND OLD PEG TUBE. PT K WAS 3.1 THIS AM AND INFUSED KCL. PER HOSPITALIST RECHECK BMP TOMORROW INSTEAD. PT HAS POOR APPETITE. PT IS ON ROOM AIR. PER NIGHT NURSE PT VOMITED. NO C/O NAUSEA AND VOMITING THIS AM. WILL FOLLOW POC
--- NOTE | 2021-04-09 11:17 | NUR ---
CRESCENCIO reviewed chart and spoke with attending physician. Pt had alex catheter placed yesterday. Pt is progressing towards goals for discharge. No weekend discharge planned. Discharge back to [facility] is anticipated for Monday. CRESCENCIO faxed clinical updates to [facility] and spoke with Ember to provide update. Ember confirms that they do not accept weekend admissions. CRESCENCIO left message for Juli Mcclure with the [place] office ([phone]) to provide update and notify of anticipated discharge date. CRESCENCIO is following to assist as needed with discharge planning.
[2021-04-09 15:18] LABS: URINE BILIRUBIN NEGATIVE (Negative); URINE BLOOD 1+ (Negative); URINE CLARITY CLOUDY; URINE COLOR YELLOW; URINE GLUCOSE-RANDOM* NEGATIVE (Negative); URINE KETONES NEGATIVE (Negative); URINE LEUKOCYTES 3+ (Negative); URINE NITRITE NEGATIVE (Negative); URINE PROTEIN (DIPSTICK) NEGATIVE (Negative); URINE UROBILINOGEN 0.2 E.U./dl (0.2-1.0)
[2021-04-09 15:37] LABS: FINE GRANULAR CASTS >10 Many /LPF (None Seen); SQUAMOUS None Seen /LPF (0-3); URINE WBC >25 Many /HPF (NONE SEEN)
[2021-04-09 15:38] LABS: CRYSTALS None Seen /LPF (None Seen); URINE RBC None Seen /HPF (NONE SEEN)
[2021-04-09 16:33] VITALS: BP 161/112
[2021-04-09 18:26] VITALS: BP 165/88
--- NOTE | 2021-04-10 04:39 | NUR ---
Assumed pt care at 1900. A/OX3,VSS.C/o abd pain but requested to hold off pain meds when offered. Denies nausea on assessmnet,poor PO intake,fluids encouraged. Max assist with cares. [place] patent with yellow urine. Fall precautions in place will continue to monitor pt.
[2021-04-10 05:54] LABS: ALBUMIN 1.8 g/dL (3.4-5.0); CALCIUM 8.7 mg/dL (8.5-10.1); PHOSPHORUS 3.8 mg/dL (2.6-4.7)
[2021-04-10 07:20] VITALS: BP 127/79
--- NOTE | 2021-04-10 09:47 | NUR ---
Assumed pt care this am. Pt has iv site on RAC running D5 1/2 @100ml/hr. Infused antibiotic as per odered. Infusing KCL and will recheck lab afterwards. Pt has peg tube and alex cath in place. Pt has poor appetite. Pt has tele monitor on. Will follow POC.
[2021-04-10 11:06] VITALS: BP 114/71
[2021-04-10 15:09] VITALS: BP 115/70
[2021-04-10 18:59] VITALS: BP 121/74
--- NOTE | 2021-04-11 03:53 | NUR ---
Pt. has been awake most of the night watching TV. Had suppository earlier and pt. did have a little stool. No c/o pain or nausea. Lapsites to abdomen with dermabond are intact. Pt. becomes very anxious when needing to be turned. Bed alarm is on.
[2021-04-11 06:20] LABS: ALBUMIN 1.7 g/dL (3.4-5.0); CALCIUM 8.4 mg/dL (8.5-10.1); CREATININE 2.8 mg/dL (0.7-1.3); PHOSPHORUS 3.7 mg/dL (2.6-4.7); POTASSIUM 3.4 mmol/L (3.5-5.1)
[2021-04-11 06:49] LABS: ABSOLUTE NEUTROPHILS 9.2 thou/uL (1.4-8.2); BASOPHILS 0.5 % (0.0-2.0); EOSINOPHILS 3.8 % (0.0-3.0); HEMATOCRIT 41.8 % (42.0-52.0); HEMOGLOBIN 13.3 gm/dL (14.0-18.0); MCH 27.8 pg (26.0-34.0); MCHC 31.7 g/dL (28.0-37.0); MCV 87.7 fL (80.0-100.0); MONOCYTES 8.3 % (1.0-8.0); PLATELET COUNT 248 thou/uL (150-400); POLYS 79.4 % (36.0-66.0); RBC 4.76 mil/uL (4.50-6.00); RDW 15.8 % (10.5-14.5); WBC 11.5 thou/uL (4.0-11.0)
[2021-04-11 06:57] LABS: ALBUMIN 1.7 g/dL (3.4-5.0); DIRECT BILIRUBIN 0.5 mg/dL (<0.1-0.2); TOTAL BILIRUBIN 0.9 mg/dL (0.2-1.0); TOTAL PROTEIN 5.2 g/dL (6.4-8.2)
[2021-04-11 07:04] VITALS: BP 149/86
--- NOTE | 2021-04-11 17:41 | NUR ---
PT HAS SEVERAL LOOSE STOOLS TODAY. PT STILL REFUSES TO EAT VERY MUCH FOOD. CONTINUE WITH Q 2 HOUR TURNS AND MONTIOR I/O. WILL CONTINUE TO ASSESS.
[2021-04-11 19:20] VITALS: BP 158/97
--- NOTE | 2021-04-12 03:05 | NUR ---
Progress pt a/o x4. not oob this shift. but able to assist in repositioning. iv to rf patent without redness or swelling ivf's and ivpb abt's infusing as ordered. alex catheter in place draining adequate amount of clear yellow urine. lungs clear, on room air. abdomen soft with hypoactive bs noted. 4 lap sites rotary surface grinder well approximated with no drainage or s/s of infection noted. dietary intake very poor throughout day pt states the smell of broth and trays make him nauseous. peg tube in place but not used this hospitalization. pt was incontinent of one small loose stool. repositioned frequently. 1 mg dilaudid given ivp for pain of 8 and hydrocodone given po with effect at 0200. pt slept after medications. brown stool
[2021-04-12] MEDS ORDERED: LIPITOR80 MG PO (12:48)
[2021-04-12] MEDS ORDERED: SEROQUEL 100 M100 M1 PO (12:49)
== END 2021-04-12 16:03 | DRG 417 ==
LOC: ER 03:47 → EROBS 09:14 → 4W 09:14
PROVIDERS: Emergency Medicine; Hospitalist; Internal Medicine; Surgery; ADMIT Hospitalist; ATTEND Hospitalist
DX: K80.00 Calculus of gallbladder with acute cholecystitis without obstruction (principal); R65.11 Systemic inflammatory response syndrome (SIRS) of non-infectious origin with acute organ dysfunction; E43 Unspecified severe protein-calorie malnutrition; R78.81 Bacteremia; I69.354 Hemiplegia and hemiparesis following cerebral infarction affecting left non-dominant side; N17.9 Acute kidney failure, unspecified; J44.9 Chronic obstructive pulmonary disease, unspecified; Z93.1 Gastrostomy status; E87.6 Hypokalemia; N18.9 Chronic kidney disease, unspecified; R33.9 Retention of urine, unspecified; Z20.822 Contact with and (suspected) exposure to COVID-19; Z91.030 Bee allergy status; N40.0 Benign prostatic hyperplasia without lower urinary tract symptoms; F32.A Depression, unspecified; Z68.26 Body mass index [BMI] 26.0-26.9, adult; I25.10 Atherosclerotic heart disease of native coronary artery without angina pectoris; D64.9 Anemia, unspecified; E78.5 Hyperlipidemia, unspecified; I12.9 Hypertensive chronic kidney disease with stage 1 through stage 4 chronic kidney disease, or unspecified chronic kidney disease; I45.9 Conduction disorder, unspecified; R74.01 Elevation of levels of liver transaminase levels
CPT/HCPCS: 10045; 50010; 50101; 50411; 50555; 51489; 52265; 52266; 52287; 53307; 53310; 53312; 54022; 54118; 55245; 56462; 56525; 56526; 56530; 56674; 58574; 58910; 62110; 62900; 70005